=== PATIENT | male | born 1935 | race Caucasian/White ===

== ENCOUNTER 2017-08-30 05:29 | Day surgery (SDC) | payer OTHER ==
[~2017-08-30] VITALS: Ht 195.6 cm; Wt 120.1 kg
--- NOTE | ~2017-08-30 | O ---
[facility] [address] [place] [address] OPERATIVE REPORT Name: MARTYCHARLEY Room #: DEP [facility].#: [id number] Admission: 08/30/17 Attend Phys: Negro Gong DPM Discharge: 08/30/17 Date of : 35 Report #: [id number] THIS REPORT FOR: //name// CC: Negro DELEON unknown DATE OF SERVICE: 08/30/2017 SURGEON: Negro Gong DPM. PREOPERATIVE DIAGNOSIS: Osteomyelitis and ulceration, right great toe joint. POSTOPERATIVE DIAGNOSIS: Osteomyelitis and ulceration, right great toe joint. PROCEDURE: Amputation of the right great toe. ANESTHESIA: IV sedation, local nerve block. HEMOSTASIS: Provided with a well-padded ankle tourniquet to the right ankle, but was not inflated during surgery. ESTIMATED BLOOD LOSS: Minimal. COMPLICATIONS: There were no complications during the procedure or the anesthesia. PREOPERATIVE COURSE: This patient was treated for approximately a month to month and a half for an ulceration on the plantar medial aspect of the right great toe. Attempted salvage failed and x-ray examination showed that the osteomyelitis at the IPJ of the right great toe joint was too extensive for salvation and plans for amputation were begun. The patient understood the risks and complications of surgery as well as the technical aspects of the surgery on the right foot. He signed the preoperative consent form, admitting to his understanding. DESCRIPTION OF PROCEDURE: The patient was wheeled to the operating room in usual supine condition, transferred to the operative table, given IV sedation. Once IV sedation was found to be adequate, local nerve block was given to the right foot. The right foot was then prepped and draped in the usual sterile manner. Upon reentering the operating room, the anesthesia was checked and found to be adequate. Dissection of the right great toe joint was begun leaving a dorsal flap of skin for replacement of the devoid plantar medial tissue that was ulcerated. Dissection was carried out from superficial to deep taking care to preserve the neurovascular structures. There was a good amount of perfusion of blood flow, but not excessive, during the course of the procedure. The distal aspect of the great toe was removed in total and sent to pathology. A [address] [address] OPERATIVE REPORT Name: BRAEDENREGINALDCHARLEY Room #: DEP [facility] M.Juliet.#: [id number] Admission: 08/30/17 Attend Phys: Negro Gong DPM Discharge: 08/30/17 Date of : 35 Report #: [id number] deep culture of the wound was also obtained at this point. Further dissection of the wound removed any osteomyelitic or necrotic tissue identified. The wound was then flushed with a copious amount of sterile saline. No further osteomyelitic bone or necrotic tissue was identified. The remainder of the tissue appeared to be well perfused and without necrosis. The dorsal flap was brought plantarward and a through a simple interrupted suture in a retention fashion the 2 skin edges were brought together and the wound reopposed. Sterile dressing was placed on the right foot and the patient left the operating room in stable condition. He will be ambulating in a postoperative shoe over the next 3-4 days and will see us in the office for postoperative evaluation in about 4 days. He is on Bactrim 800 mg b.i.d. until this wound has healed. He was given Lortab 7.5 mg for pain management if needed. He does have some neuropathy, so he may not need to use this. Again, the wound appeared to be well perfused prior to applying dressing on the right foot and he left the operating room in stable condition and will follow up in about 4 days. <ELECTRONICALLY SIGNED> By: Negro Gong DPM 09/27/17 0756 1641 1710 Negro Gong DPM /nt
--- NOTE | ~2017-08-30 | S ---
[facility] [place] [address] SURGICAL PATH RPT PROCEDURE Name: CHARLEY FERGUSON Room #: DEP [facility] Yu#: [id number] Admission: 08/30/17 Date of : 35 Discharge: 08/30/17 Report #: [id number] Path Case #: [id number] PATHOLOGY REPORT COLLECTION DATE: 08/30/2017 RECEIVED DATE: 08/30/2017 SUBMITTING PHYS: Dr. Negro Gong OTHER PHYS: SPECIMEN(S) RECEIVED: A.R great toe * * * * * * * * * * * * FINAL DIAGNOSIS: "R great toe", amputation: - Skin and subcutaneous tissue with acute and chronic inflammation, necrosis, granulation tissue, dystrophic calcifications, fat necrosis and pseudoepitheliomatous hyperplasia. - Decalcified bone and articular cartilage with acute osteomyelitis. (CLW:pit; 09/01/2017) PATHOLOGIST: Adriana Fitzpatrick M.D. REPORT ELECTRONICALLY SIGNED BY: Adriana Fitzpatrick M.D. DATE/TIME: 09/01/2017 18:10 * * * * * * * * * * * * GROSS PATHOLOGY: Received in formalin labeled "Charley Ferguson, right great toe," is a toe amputation specimen measuring 5.7 x 3.6 x 3.3 cm in greatest dimensions. The bone margin is jagged in appearance. The medial plantar aspect displays a well-circumscribed, ulcerative lesion measuring 2.4 x 2.0 cm that is surrounded by granular, yellow-alicia to dark brown skin grossly appearing to abut the soft tissue surgical margin. A nail is present in the nailbed that is thickened, granular and yellow-alicia to alicia-brown in appearance, measuring 1.7 x 1.2 cm. The surgical margin is inked. A full-thickness cross section is submitted as follows: A1 Plantar aspect, proximal A2 Plantar aspect, distal A3 Dorsal aspect, proximal (following decalcification) A4 Dorsal aspect, distal (following decalcification) A5 Additional underwriting account representative sections of ulcerative lesion (DAC; 08/31/2017) CLINICAL HISTORY: [address] [address] SURGICAL PATH RPT PROCEDURE Name: CHARLEY FERGUSON Room #: DEP [facility] M.R.#: [id number] Admission: 08/30/17 Date of : 35 Discharge: 08/30/17 Report #: [id number] Path Case #: [id number] Right great hallux ulcer, nonhealing INITIAL CPT CODE(S): A; 61805, 49663 [facility] [address] [facility] , [place] [address] Technical services performed by [facility] at [address] [place] [address], [place] [address]. [facility] [address] [place] [address] PHONE: [phone] DIRECTOR: Rohit Yo M.D. * * * END OF REPORT * * *
--- NOTE | ~2017-08-30 | EKG ---
[address] [place] [address] ELECTROCARDIOGRAM REPORT Name: CHARLEY FERGUSON Room #: 150-13 [facility].#: [id number] Admission: 08/30/17 Attend Phys: Negro Gong DPM Discharge: Date of : 35 Report #: [id number] THIS REPORT FOR: //name// [facility] Test Date: 2017-08-30 Test Time: 09:07:26 Pat Name: CHARLEY FERGUSON Department: Room: 150 13 Gender: M Manager Utilization Review: EDUARD : 1935 Requested By: Negro Gong Order Number: [id number] MD: Ben Shaw Measurements Intervals [place] Rate: 71 P: DC: QRS: -57 QRSD: 107 T: 27 QT: 414 QTc: 450 Interpretive Statements Atrial fibrillation LAD, consider left anterior fascicular block Borderline low voltage, extremity leads Compared to ECG 09/03/1995 09:44:00 Sinus rhythm no longer present Electronically Signed On 08-30-2017 14:13:53 PICKING TABLE WORKER by Ben Shaw [email or web address] <ELECTRONICALLY SIGNED> By: Ben Shaw MD, [facility] 08/30/17 1413 0907 0907 Ben Shaw MD, [facility] /EPI
[~2017-08-30 05:29] MED LIST: BACTRIM DS TAB1 EACH PO; CARDIZEM CD120 MG PO; CARVEDILOL12.5 MG PO; ELIQUIS2.5 MG PO; FLOMAX0.4 MG PO; NOVOLOG100 UNIT/1 SUBQ; PROSCAR 5MG TABL5 MG PO; TRESIBA FL100 UNIT/1 SUBQ
[2017-08-30 08:57] VITALS: BP 133/84
[2017-10-21] MEDS ORDERED: SIVEXTRO200 M1 PO ×2 (17:02→20:28)
[2017-10-21] MEDS ORDERED: LOPRESSOR25 PO (17:03)
[2017-10-21] MEDS ORDERED: TRULICITY0.75 MG/0. SUBQ (17:03)
[2017-10-21] MEDS ORDERED: PROSCAR 5MG TABL5 MG PO (17:04)
[2017-10-21] MEDS ORDERED: FLOMAX0.4 MG PO (17:04)
[2017-10-26] MEDS ORDERED: NOVOLOG100 UNIT/1 SUBQ ×2 (10:20)
[2017-10-26] MEDS ORDERED: LANTUS100 UNIT/M SUBQ (10:20)
[2017-10-26] MEDS ORDERED: CEFTRIAXON1 GM/50 ML IV (10:20)
[2017-10-26] MEDS ORDERED: FLAGYL500 MG PO (10:21)
[2017-10-26] MEDS ORDERED: COLACE 100 MG100 MG PO (10:21)
[2017-10-26] MEDS ORDERED: ATENOLOL 50MG T50 MG PO (10:21)
[2017-10-26] MEDS ORDERED: MIRALAX17 GM PO (10:21)
== END 2017-08-30 18:20 | disposition home or self-care (01) ==
LOC: OR 05:29 → TBA 05:29 → OR 11:46
DX: E11.621 Type 2 diabetes mellitus with foot ulcer (principal); L97.519 Non-pressure chronic ulcer of other part of right foot with unspecified severity; M86.171 Other acute osteomyelitis, right ankle and foot; Z87.891 Personal history of nicotine dependence; I48.91 Unspecified atrial fibrillation
CPT/HCPCS: 50010; 50101; 50386; 57091; 62110; 62850; 70005

== ENCOUNTER 2017-09-10 18:59 | Inpatient (IN) | payer OTHER ==
[~2017-09-10] VITALS: Ht 195.6 cm; Wt 122.5 kg
--- NOTE | ~2017-09-10 | 2DMMODE ---
[facility] [address] [place] [address] 2 D/M-MODE ECHOCARDIOGRAM Name: CHARLEY FERGUSON Room #: 213-P [facility] ..#: [id number] Admission: 09/10/17 Attend Phys: Luisito Jacob Discharge: Date of : 35 Date of Service: 09/11/17 1515 Report #: [id number] THIS REPORT FOR: //name// APPROVED REPORT Study performed: 09/11/2017 11:26:49 EXAM: Comprehensive 2D, Doppler, and color-flow Echocardiogram Patient Location: Bedside Room #: 213 Status: on-call BSA: 2.53 HR: 75 bpm BP: 102/63 mmHg Rhythm: Atrial Fibrillation Other Information Study Quality: Good Risk Factors: Cardiac Risk Factors: DM Indications Atrial Fibrillation Dyspnea 2D Dimensions LVEF(%): 54.75 (>50%) IVSd: 10.20 (7-11mm) LVOT Diam: 21.00 (18-24mm) LVDd: 1.00 mm PWd: 9.88 (7-11mm) Ascending Ao: 37.86 (22-36mm) LVDs: 34.93 (25-40mm) Aortic Root: 37.88 mm LV Single Plane 4CH: 44.90 % LV Single Plane 2CH: 53.09 % Landaverde's LVEF: 48.99 % Biplane EF: 48.6 % Volumes Left Atrial Volume (Systole) Single Plane 4CH: 121.22 mL Single Plane 2CH: 98.40 mL LA ESV Index: 47.00 mL/m2 Aortic Valve AoV Peak Jay.: 1.09 m/s AO Peak Gr.: 4.73 mmHg LVOT Max P.90 mmHg [facility] [address] [place] [address] 2 D/M-MODE ECHOCARDIOGRAM Name: MARTYCHARLEY Luis Room #: 213-P [facility]#: [id number] Admission: 09/10/17 Attend Phys: Luisito Jacob Discharge: Date of : 35 Date of Service: 09/11/17 1515 Report #: [id number] LVOT Max V: 0.69 m/s IMAN Vmax: 2.14 cm2 Pulmonary Valve PV Peak Jay.: 0.68 m/s PV Peak Gr.: 1.83 mmHg Tricuspid Valve TR Peak Jay.: 2.82 m/s RAP Estimate: 7.00 mmHg TR Peak Gr.: 31.85 mmHg PA Pressure: 39.00 mmHg Left Ventricle The left ventricle is normal size. There is normal LV segmental wall motion. There is normal left ventricular wall thickness. Left ventricular systolic function is normal. The left ventricular ejection fraction is within the normal range. LVEF is 50-55%. The left ventricular diastolic function is normal. Right Ventricle Right ventricle is dilated. Right ventricle is hypokinetic. Atria Left atrium is moderately dilated. Right atrium is severely dilated. Aortic Valve The Aortic valve is sclerotic. No aortic regurgitation is present. There is no aortic valvular stenosis. Mitral Valve There is mitral annular calcification. Mild mitral regurgitation. No evidence of mitral valve stenosis. Tricuspid Valve The tricuspid valve is normal in structure. Mild tricuspid regurgitation. Pulmonary artery pressure is 39 mmHg. Pulmonic Valve The pulmonary valve is normal in structure. Mild pulmonic regurgitation. Great Vessels The aortic root is normal in size. IVC is normal in size and collapses with >50% inspiration [facility] [place] [address] 2 D/M-MODE ECHOCARDIOGRAM Name: CHARLEY FERGUSON Room #: 213-P [facility] .R.#: [id number] Admission: 09/10/17 Attend Phys: Luisito Jacob Discharge: Date of : 35 Date of Service: 09/11/17 1515 Report #: [id number] Pericardium There is no pericardial effusion. <Conclusion> The left ventricle is normal size. Left ventricular systolic function is normal. The left ventricular ejection fraction is within the normal range. LVEF is 50-55%. Right ventricle is dilated. Right ventricle is hypokinetic. Left atrium is moderately dilated. Right atrium is severely dilated. The Aortic valve is sclerotic. There is no aortic valvular stenosis. Mild mitral regurgitation. Mild tricuspid regurgitation. Pulmonary artery pressure is 39 mmHg. The aortic root is normal in size. There is no pericardial effusion. <ELECTRONICALLY SIGNED> By: David Veras MD, FACC 09/11/17 1515 151 151 David Veras MD, FACC /INF
--- NOTE | ~2017-09-10 | EKG ---
[address] [place] [address] ELECTROCARDIOGRAM REPORT Name: CHARLEY FERGUSON Room #: 213-P [facility] IN M.R.#: [id number] Admission: 09/10/17 Attend Phys: Luisito Farley Discharge: Date of : 35 Report #: [id number] THIS REPORT FOR: //name// [facility] Test Date: 2017-09-10 Test Time: 19:03:08 Pat Name: CHARLEY FERGUSON Department: Room: 213 Gender: M Director Ehs: : 1935 Requested By: Darlyn Marin Order Number: [id number] MD: Lincoln Hayes Measurements Intervals [place] Rate: 162 P: ID: QRS: -82 QRSD: 98 T: 66 QT: 267 QTc: 439 Interpretive Statements Atrial fibrillation with rapid V-rate Inferior infarct, old Consider anterior infarct Baseline wander in lead(s) V2 Compared to ECG 08/30/2017 09:07:26 Myocardial infarct finding now present Electronically Signed On 09-11-2017 12:23:18 INDUSTRIAL SAFETY AND HEALTH SPECIALIST by Lincoln Hayes [email or web address] <ELECTRONICALLY SIGNED> By: Lincoln Hayes MD 09/11/17 1223 190 02 Lincoln Hayes MD /EPI
[2017-09-10 19:17] LABS: ABSOLUTE NEUTROPHILS 12.7 thou/uL (1.4-8.2); BASOPHILS 0.9 % (0.0-2.0); EOSINOPHILS 0.3 % (0.0-3.0); HEMATOCRIT 43.3 % (42.0-52.0); HEMOGLOBIN 14.5 gm/dL (14.0-18.0); LYMPHOCYTES 5.1 % (24.0-44.0); MCH 30.3 pg (26.0-34.0); MCHC 33.4 g/dL (28.0-37.0); MCV 90.7 fL (80.0-100.0); MONOCYTES 1.3 % (1.0-8.0); PLATELET COUNT 310 thou/uL (150-400); POLYS 92.4 % (36.0-66.0); RBC 4.77 mil/uL (4.50-6.00); RDW 14.5 % (10.5-14.5); WBC 13.8 thou/uL (4.0-11.0)
[2017-09-10 19:26] LABS: ANION GAP 4 mmol/L (7-16); BUN 25 mg/dL (7-18); CALCIUM 9.3 mg/dL (8.5-10.1); CHLORIDE 99 mmol/L (98-107); CO2 29 mmol/L (21-32); CREATININE 1.2 mg/dL (0.7-1.3); GLUCOSE 184 mg/dL (74-106); POTASSIUM 4.7 mmol/L (3.5-5.1); SODIUM 132 mmol/L (136-145)
[2017-09-10 19:34] LABS: MAGNESIUM 1.7 mg/dL (1.8-2.4); TROPONIN-I < 0.04 ng/mL (<0.06)
[2017-09-10 19:36] LABS: APTT 25.2 Seconds (24.5-32.8); PROTIME 10.2 Seconds (9.3-11.4)
[2017-09-10 20:46] LABS: URINE BILIRUBIN NEGATIVE (Negative); URINE BLOOD NEGATIVE (Negative); URINE CLARITY CLEAR; URINE COLOR YELLOW; URINE GLUCOSE-RANDOM* NEGATIVE (Negative); URINE KETONES NEGATIVE (Negative); URINE LEUKOCYTES-REFLEX NEGATIVE (Negative); URINE NITRITE-REFLEX NEGATIVE (Negative); URINE PROTEIN (DIPSTICK) NEGATIVE (Negative); URINE SPECIFIC GRAVITY >= 1.030 (1.005-1.035); URINE UROBILINOGEN 0.2 E.U./dl (0.2-1.0)
[2017-09-10 21:15] VITALS: BP 105/77
[2017-09-10 21:46] VITALS: BP 112/56
[2017-09-11 03:34] VITALS: BP 103/54
[2017-09-11 04:14] VITALS: BP 107/58
[2017-09-11 06:31] LABS: HEMATOCRIT 38.9 % (42.0-52.0); HEMOGLOBIN 12.7 gm/dL (14.0-18.0); MCH 29.7 pg (26.0-34.0); MCHC 32.8 g/dL (28.0-37.0); MCV 90.6 fL (80.0-100.0); RBC 4.29 mil/uL (4.50-6.00); RDW 14.7 % (10.5-14.5); WBC 24.3 thou/uL (4.0-11.0)
[2017-09-11 06:40] LABS: CALCIUM 8.4 mg/dL (8.5-10.1); MAGNESIUM 2.2 mg/dL (1.8-2.4); POTASSIUM 4.7 mmol/L (3.5-5.1)
[2017-09-11 08:13] VITALS: BP 102/63
[2017-09-11 11:45] VITALS: BP 117/76
[2017-09-11 15:44] VITALS: BP 126/70
[2017-09-11 19:30] VITALS: BP 103/51
[2017-09-12 04:09] VITALS: BP 111/62
[2017-09-12 04:36] LABS: ALBUMIN 2.5 g/dL (3.4-5.0); CALCIUM 8.5 mg/dL (8.5-10.1); PHOSPHORUS 2.7 mg/dL (2.5-4.9); POTASSIUM 4.6 mmol/L (3.5-5.1)
[2017-09-12 07:27] VITALS: BP 114/72
[2017-09-12] MEDS ORDERED: CARDIZEM CD180 MG PO (08:47)
[2017-09-12 16:38] VITALS: BP 114/64
[2017-09-12 19:39] VITALS: BP 116/74
[2017-09-13 03:50] VITALS: BP 120/96
[2017-09-13] MEDS ORDERED: CARDIZEM CD240 MG PO (11:42)
[2017-09-13 11:58] VITALS: BP 114/83
[2017-09-13 14:53] VITALS: BP 114/83
[2017-10-21] MEDS ORDERED: SIVEXTRO200 M1 PO ×2 (17:02→20:28)
[2017-10-21] MEDS ORDERED: TRULICITY0.75 MG/0. SUBQ (17:03)
[2017-10-21] MEDS ORDERED: LOPRESSOR25 PO (17:03)
[2017-10-21] MEDS ORDERED: PROSCAR 5MG TABL5 MG PO (17:04)
[2017-10-21] MEDS ORDERED: FLOMAX0.4 MG PO (17:04)
[2017-10-26] MEDS ORDERED: NOVOLOG100 UNIT/1 SUBQ ×2 (10:20)
[2017-10-26] MEDS ORDERED: LANTUS100 UNIT/M SUBQ (10:20)
[2017-10-26] MEDS ORDERED: CEFTRIAXON1 GM/50 ML IV (10:20)
[2017-10-26] MEDS ORDERED: COLACE 100 MG100 MG PO (10:21)
[2017-10-26] MEDS ORDERED: MIRALAX17 GM PO (10:21)
[2017-10-26] MEDS ORDERED: ATENOLOL 50MG T50 MG PO (10:21)
[2017-10-26] MEDS ORDERED: FLAGYL500 MG PO (10:21)
== END 2017-09-13 17:26 | disposition home or self-care (01) | DRG 308 ==
LOC: ER 18:59 → 2N 20:55 → EROBS 20:55 → 2N 21:24 → ENTRNSPT 09-13 16:31 → 2N 09-13 17:26
PROVIDERS: Emergency Medicine; Hospitalist; Nurse Practitioner Acute Care
PROC: B24BZZ4 Ultrasonography of Heart with Aorta, Transesophageal (ICD-10-PCS; principal; 2017-09-11)
DX: I48.91 Unspecified atrial fibrillation (principal); J81.0 Acute pulmonary edema; E43 Unspecified severe protein-calorie malnutrition; E11.9 Type 2 diabetes mellitus without complications; I08.1 Rheumatic disorders of both mitral and tricuspid valves; Z96.651 Presence of right artificial knee joint; E83.42 Hypomagnesemia; Z87.891 Personal history of nicotine dependence; Z79.01 Long term (current) use of anticoagulants; Z79.4 Long term (current) use of insulin; Z89.411 Acquired absence of right great toe; Z89.421 Acquired absence of other right toe(s); Z79.899 Other long term (current) drug therapy; Z88.8 Allergy status to other drugs, medicaments and biological substances
CPT/HCPCS: 10081

== ENCOUNTER 2019-10-03 23:52 | Inpatient (IN) | payer OTHER ==
[~2019-10-03] VITALS: Ht 200.7 cm; Wt 126.6 kg
[~2019-10-03 23:52] MED LIST changes: +ATENOLOL 50MG T50 MG PO; +CARDIZEM CD180 MG PO; +CARDIZEM CD240 MG PO; +CEFTRIAXON1 GM/50 ML IV; +COLACE 100 MG100 MG PO; +FLAGYL500 MG PO; +LANTUS100 UNIT/M SUBQ; +LOPRESSOR25 PO; +MIRALAX17 GM PO; +SIVEXTRO200 M1 PO; +TRULICITY0.75 MG/0. SUBQ
[2019-10-03 23:53] VITALS: BP 138/67
[2019-10-04] VITALS (8 sets, daily range): BP systolic 127–146; BP diastolic 63–74
[2019-10-04] MEDS ORDERED: ZETIA10 MG PO (00:14)
[2019-10-04] MEDS ORDERED: NOVOLOG100 UNIT/1 (00:16)
[2019-10-04] MEDS ORDERED: TRESIBA100 UNIT/1 SUBQ (00:19)
[2019-10-04 00:53] LABS: ABSOLUTE NEUTROPHILS 12.6 thou/uL (1.4-8.2); BASOPHILS 0.8 % (0.0-2.0); EOSINOPHILS 1.1 % (0.0-3.0); HEMATOCRIT 45.5 % (42.0-52.0); HEMOGLOBIN 14.7 gm/dL (14.0-18.0); LYMPHOCYTES 15.3 % (24.0-44.0); MCH 30.6 pg (26.0-34.0); MCHC 32.3 g/dL (28.0-37.0); MCV 94.7 fL (80.0-100.0); MONOCYTES 7.5 % (1.0-8.0); PLATELET COUNT 199 thou/uL (150-400); POLYS 75.3 % (36.0-66.0); RDW 14.1 % (10.5-14.5); WBC 16.7 thou/uL (4.0-11.0)
[2019-10-04 00:57] LABS: CALCIUM 9.9 mg/dL (8.5-10.1); POTASSIUM 3.7 mmol/L (3.5-5.1)
[2019-10-04 02:20] LABS: URINE BILIRUBIN NEGATIVE (Negative); URINE BLOOD NEGATIVE (Negative); URINE CLARITY CLEAR; URINE COLOR YELLOW; URINE GLUCOSE-RANDOM* TRACE (Negative); URINE KETONES NEGATIVE (Negative); URINE LEUKOCYTES-REFLEX NEGATIVE (Negative); URINE NITRITE-REFLEX NEGATIVE (Negative); URINE PROTEIN (DIPSTICK) NEGATIVE (Negative); URINE UROBILINOGEN 0.2 E.U./dl (0.2-1.0)
[2019-10-04 22:07] LABS: GLYCOHEMOGLOBIN (HGB A1C) 7.3 % (4.8-5.6)
[2019-10-05 04:23] VITALS: BP 149/78
[2019-10-05 08:07] VITALS: BP 127/65
--- NOTE | 2019-10-05 11:49 | HC ---
[facility] [address] [place] [address] CONSULTATION Name: BRAEDENREGINALDCHARLEY A Room #: 434-P [facility] [place] ..#: [id number] Admission: 10/04/19 Attend Phys: Megan eLon MD Discharge: Date of : 35 Report #: [id number] THIS REPORT FOR: cc: [facility] - Clinic physician unknown [facility] - Clinic physician unknown Jessica Curtis MD ~ CC: Megan Leon [facility] unknown DATE OF SERVICE: 10/04/2019 CONSULTING PHYSICIAN: Dr. Leon. REASON FOR CONSULTATION: Hypoglycemia, type 2 diabetes mellitus. HISTORY OF PRESENT ILLNESS: This is an 84-year-old male patient whose medical background is significant for type 2 diabetes mellitus, which he has had for many years. The patient is maintained on a regimen of Tresiba 30 units q.p.m. in addition to NovoLog insulin 15-20 units t.i.d. a.c. The patient notes fairly consistent level of control overall on this regimen with most blood glucose values running between 100 and 200 mg/dL. He denies active or recurrent issues with hypoglycemia. The patient is not aware of difficulties pertaining to diabetic retinopathy or nephropathy. However, he does have issues with peripheral neuropathy and has had two right toes amputated several years ago due to osteomyelitis and peripheral vascular disease. The patient was at his usual state of health until he was found last night on the bathroom floor by his unconscious. She called EMS and he was found to have hypoglycemia, which prompted resuscitation with D50. This brought him up to 94 mg/dL before dropping down to 54 mg/dL and on arrival, the patient was with a blood glucose of less than 40 mg/dL. Subsequently, he was admitted for further care and monitoring. He has done well since then and his most recent blood glucose prior to this dictation was at 300 mg/dL. The patient is not aware of coronary artery disease. Otherwise, he has hyperlipidemia and is maintained on ezetimibe 10 mg daily. REVIEW OF SYSTEMS: CONSTITUTIONAL: Negative for fatigue, tiredness, fever, chills or significant changes in body weight. HEENT: Negative for sinus pain, sore throat, ear drainage. PULMONARY: Negative for shortness of breath, cough or hemoptysis. CARDIAC: Negative for chest pain, palpitations, syncope or presyncope. GASTROINTESTINAL: Negative for abdominal pain, nausea, vomiting, or change in bowel movement frequency. NEUROLOGY: Noted for an episode of loss of consciousness. Neuroglycopenia, [facility] [address] [place] [address] CONSULTATION Name: CHARLEY FERGUSON Luis Room #: 434-P [facility] [place] [facility]#: [id number] Admission: 10/04/19 Attend Phys: Megan Leon MD Discharge: Date of : 35 Report #: [id number] Negative for seizure activity. The patient has baseline peripheral neuropathy. UROLOGY: Negative for dysuria, hematuria, or other issues. PSYCHIATRIC: Negative for delusions, hallucinations. Otherwise, the patient's review of systems noncontributory other than those mentioned in HPI. PAST MEDICAL HISTORY: 1. Type 2 diabetes mellitus. 2. Atrial fibrillation. 3. Osteoarthritis. 4. Hyperlipidemia. 5. Diabetic peripheral neuropathy. 6. Peripheral vascular disease, status post amputation of right first and second toes. PAST SURGICAL HISTORY: Right total knee replacement, multiple colonoscopies, amputation of the right first and second toes. ACTIVE MEDICATIONS: Tresiba insulin 30 units q.p.m., NovoLog insulin 15-20 units t.i.d. a.c., atenolol 50 mg b.i.d., Colace 100 mg b.i.d., MiraLax 17 grams daily p.r.n., diltiazem 240 mg daily, ezetimibe 10 mg daily. ALLERGIES: STATINS, HE GETS SIGNIFICANT MYALGIAS WITH THIS. SOCIAL HISTORY: He is , lives with his . Denies active use of tobacco or alcohol. PHYSICAL EXAMINATION: GENERAL: Pleasant male patient who is not in apparent pain or distress. VITAL SIGNS: Blood pressure is 146/74 mmHg, heart rate is 18 per minute, temperature 36.5 degrees, heart rate 73 beats per minute, respiration 18 per minute. CONSTITUTIONAL: The patient is lying in bed, seems comfortable, not in apparent distress. HEENT: Anicteric sclerae. Intact ocular motions. NECK: Supple, without JVD, carotid bruits or lymphadenopathy. I do not appreciate thyromegaly. CHEST: Noted for moderate air entry bilaterally with scattered rales and rhonchi. HEART: Regular rate and rhythm without murmurs or gallops. ABDOMEN: Soft, lax. No guarding. Active bowel sounds. EXTREMITIES: Lower extremity exam noted for trace ankle edema, status post amputation of the first and second right toes. Sensation to light touch is mildly diminished bilaterally. NEUROLOGIC: Awake, alert and oriented to time, place and person. The remainder [facility] [address] [place] [address] CONSULTATION Name: CHARLEY FERGUSON Room #: 434-P [facility] [place] M.R.#: [id number] Admission: 10/04/19 Attend Phys: Megan Leon MD Discharge: Date of : 35 Report #: [id number] of his examination is nonfocal other than for sensory deficits over both lower extremities. PSYCHIATRIC: Pleasant, interactive, appropriate. Normal mood and affect. LABORATORY RESULTS: On arrival, blood glucose was 38 mg/dL up to 68, then 147, 242, 240, and then 300 mg/dL. Otherwise, sodium 140, potassium 3.7, chloride 102, CO2 of 33, anion gap 5, BUN 26, creatinine 1.0, calcium 9.9, phosphorus 2.5, magnesium 1.9, albumin 2.2. EGFR 71. Lactic acid 1.1. BNP 1419. INR 1.0. White blood count 16.7, hemoglobin 14.7, hematocrit 45.5, platelets 199. TSH in 2018 was 2.41. Hemoglobin A1c is pending. ASSESSMENT AND PLAN: 1. Hypoglycemia. The patient presented with severe hypoglycemia associated with neuroglycopenia, loss of consciousness. He has recovered from this with resuscitative efforts including dextrose infusion. Given his persistent hyperglycemia over the past few hours, he was appropriately taken off dextrose an hour ago. Blood glucose monitoring will continue for the next few hours to ensure his stability off dextrose support. If hypoglycemia were to recur, he will be resuscitated as per [facility]'s hypoglycemia protocol. This was indeed a result of discrepancy between fluid and insulin intake. 2. Type 2 diabetes mellitus. The patient has had longstanding type 2 diabetes mellitus with seemingly adequate control on basal bolus insulin therapy. The patient typically does well as per his reported blood glucose values and without major hypoglycemia as frequent occurring. However, he presented with severe hypoglycemia due to a mismatch of his insulin intake and fluid intake, likely involving excessive NovoLog intake. He was counseled about the need to maintain normal glycemia without hypoglycemia. In the immediate setting, we will resume basal bolus therapy and Lantus dose of 22 units q.p.m. and Humalog dose of 8 units t.i.d. a.c. along with Humalog low intensity supplemental scale. Blood glucose monitoring will commence a.c. and at bedtime and further adjustments will be made accordingly. Hemoglobin A1c has been ordered and is pending. 3. Hyperlipidemia. The patient is maintained on ezetimibe therapy, he is to continue with the same. 4. Diabetic neuropathy. The patient has baseline diabetic neuropathy, which he says does not particularly bother him. He is advised to pursue treatment as needed. I certainly appreciate this consultation by Dr. Leon. <ELECTRONICALLY SIGNED> By: Jessica Curtis MD 10/05/19 1149 1243 1540 Jessica Curtis MD /nt
[2019-10-05 12:31] VITALS: BP 127/65
[2019-10-05] MEDS ORDERED: NOVOLOG100 UNIT/1 SUBQ (12:40)
[2019-10-05] MEDS ORDERED: TRESIBA100 UNIT/1 SUBQ (12:40)
[2019-10-05] MEDS ORDERED: PEPCID20 MG PO (12:40)
[2019-10-05 13:01] VITALS: BP 127/65
[2019-10-05 13:12] VITALS: BP 127/65
[2019-10-05 13:13] VITALS: BP 127/65
== END 2019-10-05 14:47 | disposition home or self-care (01) | DRG 637 ==
LOC: ER 23:52 → 4S 10-04 02:59 → EROBS 10-04 02:59 → 4S 10-04 07:25
PROVIDERS: Emergency Medicine; Nurse Practitioner Family; ADMIT Hospitalist
DX: E11.649 Type 2 diabetes mellitus with hypoglycemia without coma (principal); G93.41 Metabolic encephalopathy; I48.91 Unspecified atrial fibrillation; Z96.651 Presence of right artificial knee joint; M19.90 Unspecified osteoarthritis, unspecified site; E78.5 Hyperlipidemia, unspecified; E11.42 Type 2 diabetes mellitus with diabetic polyneuropathy; E11.51 Type 2 diabetes mellitus with diabetic peripheral angiopathy without gangrene; N40.0 Benign prostatic hyperplasia without lower urinary tract symptoms; G47.00 Insomnia, unspecified; I10 Essential (primary) hypertension; Z79.4 Long term (current) use of insulin; Z89.421 Acquired absence of other right toe(s); Z87.891 Personal history of nicotine dependence; Z79.899 Other long term (current) drug therapy
CPT/HCPCS: 10195

== ENCOUNTER 2020-05-11 03:22 | Emergency (ER) | payer OTHER ==
[~2020-05-11] VITALS: Ht 195.6 cm; Wt 113.4 kg
[~2020-05-11 03:22] MED LIST changes: +NOVOLOG100 UNIT/1; +PEPCID20 MG PO; +TRESIBA100 UNIT/1 SUBQ; +ZETIA10 MG PO
[2020-05-11 04:03] LABS: ABSOLUTE NEUTROPHILS 10.7 thou/uL (1.4-8.2); EOSINOPHILS 0.6 % (0.0-3.0); HEMOGLOBIN 15.1 gm/dL (14.0-18.0); LYMPHOCYTES 14.6 % (24.0-44.0); MCH 30.2 pg (26.0-34.0); MCHC 32.7 g/dL (28.0-37.0); MCV 92.3 fL (80.0-100.0); MONOCYTES 7.7 % (1.0-8.0); PLATELET COUNT 203 thou/uL (150-400); POLYS 76.1 % (36.0-66.0); RBC 4.99 mil/uL (4.50-6.00); WBC 14.1 thou/uL (4.0-11.0)
[2020-05-11 04:13] LABS: ANION GAP 12 mmol/L (7-16); BUN 21 mg/dL (7-18); CALCIUM 9.4 mg/dL (8.5-10.1); CHLORIDE 99 mmol/L (98-107); CO2 26 mmol/L (21-32); CREATININE 1.2 mg/dL (0.7-1.3); GLUCOSE 165 mg/dL (74-106); POTASSIUM 4.4 mmol/L (3.5-5.1); SODIUM 137 mmol/L (136-145)
[2020-05-11 04:23] LABS: ALBUMIN 3.5 g/dL (3.4-5.0); MAGNESIUM 1.8 mg/dL (1.8-2.4); SGOT 17 U/L (15-37); SGPT 20 U/L (30-65); TOTAL BILIRUBIN 0.5 mg/dL (0.2-1.0); TOTAL PROTEIN 7.1 g/dL (6.4-8.2); TROPONIN-I <0.06 ng/mL (<0.06)
[2020-05-11 04:37] LABS: URINE BILIRUBIN NEGATIVE (Negative); URINE BLOOD 1+ (Negative); URINE CLARITY SL CLOUDY; URINE COLOR YELLOW; URINE GLUCOSE-RANDOM* 2+ (Negative); URINE KETONES NEGATIVE (Negative); URINE NITRITE-REFLEX NEGATIVE (Negative); URINE PROTEIN (DIPSTICK) TRACE (Negative); URINE SPECIFIC GRAVITY >= 1.030 (1.005-1.035); URINE UROBILINOGEN 0.2 E.U./dl (0.2-1.0)
[2020-05-11 04:39] LABS: URINE LEUKOCYTES-REFLEX 2+ (Negative)
[2020-05-11] MEDS ORDERED: TRULICITY1.5 MG/0.5 SUBQ (04:43)
[2020-05-11 04:44] LABS: HYALINE CASTS 4-10 Moderate /LPF (None Seen); MUCUS 4-6 Moderate strn/LPF (None Seen); RENAL EPITHELIAL CELLS 0-3 Few /LPF (None Seen); SQUAMOUS 0-3 Few /LPF (0-3); TRANSITIONAL EPITHEL CELL 0-3 Few /LPF (None Seen); URINE WBC-REFLEX >25 Many /HPF (0-5)
[2020-05-11 04:45] LABS: BACTERIA-REFLEX >30 Many /HPF (None Seen); CRYSTALS None Seen /LPF (None Seen)
[2020-05-11] MEDS ORDERED: NOVOLOG FL100 UNIT/M SUBQ (04:45)
[2020-05-11] MEDS ORDERED: LANTUS SUBQ (04:48)
[2020-05-11] MEDS ORDERED: KEFLEX500 M1 PO (05:27)
[2020-05-11 05:40] VITALS: BP 162/70
--- NOTE | 2020-05-11 09:42 | EKG ---
[facility] [place] [address] ELECTROCARDIOGRAM REPORT Name: CHARLEY FERGUSON [id number] Admission: 05/11/20 Attend Phys: Discharge: 05/11/20 Date of : 35 Report #: [id number] THIS REPORT FOR: cc: [facility] - Clinic physician unknown [facility] - Clinic physician unknown Dandy Morales MD ~ THIS REPORT FOR: //name// [facility] ED Test Date: 2020-05-11 Test Time: 03:35:45 Pat Name: CHARLEY FERGUSON Department: Room: Gender: Cylinder Honer: : 1935 Requested By: Kyle Aranda Order Number: [id number] MD: Dandy Morales Measurements Intervals [place] Rate: 70 P: LA: QRS: -20 QRSD: 130 T: 140 QT: 389 QTc: 420 Interpretive Statements Atrial fibrillation Left bundle branch block Compared to ECG 10/21/2017 16:50:18 Left bundle-branch block now present Myocardial infarct finding no longer present Electronically Signed On 05-11-2020 9:42:00 CDT by Dandy Morales [email or web address] <ELECTRONICALLY SIGNED> By: Dandy Morales MD 05/11/20 0942 0335 0335 Dandy Morales MD /EPI
== END 2020-05-11 06:39 | disposition home or self-care (01) ==
LOC: ER 03:22
PROVIDERS: Emergency Medicine
DX: N39.0 Urinary tract infection, site not specified (principal); I48.91 Unspecified atrial fibrillation; E11.9 Type 2 diabetes mellitus without complications; Z98.890 Other specified postprocedural states; Z95.0 Presence of cardiac pacemaker; Z96.651 Presence of right artificial knee joint; Z89.411 Acquired absence of right great toe; Z89.421 Acquired absence of other right toe(s); Z79.899 Other long term (current) drug therapy; Z79.4 Long term (current) use of insulin; Z88.8 Allergy status to other drugs, medicaments and biological substances; Z87.891 Personal history of nicotine dependence

== ENCOUNTER 2020-08-13 03:26 | Emergency (ER) | payer OTHER ==
[~2020-08-13] VITALS: Ht 195.6 cm; Wt 113.4 kg
[~2020-08-13 03:26] MED LIST changes: +KEFLEX500 M1 PO; +LANTUS SUBQ; +NOVOLOG FL100 UNIT/M SUBQ; +TRULICITY1.5 MG/0.5 SUBQ
[2020-08-13 05:06] VITALS: BP 125/51
--- NOTE | 2020-08-13 07:33 | EKG ---
[address] [address] [place] [address] ELECTROCARDIOGRAM REPORT Name: CHARLEY FERGUSON Room #: REG ROSSY Nicholas#: [id number] Admission: 08/13/20 Attend Phys: Discharge: Date of : 35 Report #: [id number] [facility] ED Test Date: 2020-08-13 Test Time: 03:53:05 Pat Name: CHARLEY FERGUSON Department: Room: Gender: M Lead Network Architect: DI : 1935 Requested By: Tyson De Souza Order Number: [id number] MD: Andrés Oliva Measurements Intervals [place] Rate: 75 P: 0 [place]: 62 QRS: -1 QRSD: 127 T: 191 QT: 410 QTc: 458 Interpretive Statements Ventricular-paced complexes No further rhythm analysis attempted due to paced rhythm Left bundle branch block Baseline wander in lead(s) V1 Compared to ECG 05/11/2020 03:35:45 Atrial fibrillation no longer present Electronically Signed On 08-13-2020 7:33:50 LOG LOADER HELPER by Andrés Oliva [email or web address] <ELECTRONICALLY SIGNED> By: Andrés Oliva MD, [facility] 08/13/20 0733 035 035 Andrés Oliva MD, FACC /EPI
== END 2020-08-13 07:18 | disposition home or self-care (01) ==
LOC: ER 03:26
DX: Z04.3 Encounter for examination and observation following other accident (principal); I48.91 Unspecified atrial fibrillation; E11.9 Type 2 diabetes mellitus without complications; Z96.651 Presence of right artificial knee joint; Z89.421 Acquired absence of other right toe(s); Z79.2 Long term (current) use of antibiotics; Z79.899 Other long term (current) drug therapy; Z79.4 Long term (current) use of insulin; Z88.8 Allergy status to other drugs, medicaments and biological substances; Z87.891 Personal history of nicotine dependence; W18.39XA Other fall on same level, initial encounter; Y93.89 Activity, other specified; Y92.89 Other specified places as the place of occurrence of the external cause; Y99.8 Other external cause status